=== PATIENT | male | born 1935 | race Caucasian/White ===

== ENCOUNTER 2017-03-15 16:45 | Inpatient (IN) ==
[2017-03-15] MEDS ORDERED: Acetaminophen 325 MG TABLET PO PRN (18:42)
[2017-03-15] MEDS ORDERED: Acetaminophen/Butalbital/CaffeineTABLET PO PRN (18:42)
[2017-03-15] MEDS: Potassium Chloride Elixir 20 MEQ/15 ML UDC PO SCH (20:40)
[2017-03-15] MEDS: traMADol 50 MG TABLET PO PRN (20:40)
[2017-03-15] MEDS: Furosemide 20 MG TABLET PO SCH (20:40)
[2017-03-16 05:52] LABS: Basophils % 0.2 %; Eosinophils % 0.1 %; Hematocrit 26.5 % (37.5-50.1); Hemoglobin 8.8 g/dL (12.9-16.9); Immature Granulocytes % 7.1 % (0-4); Lymphocytes # 0.7 K/mcL (0.6-4.6); Mean Corpuscular HGB Conc 33.2 g/dL (31.6-35.5); Mean Corpuscular Hemoglobin 35.2 pg (28.0-33.3); Mean Platelet Volume 12.6 fL (9.4-12.4); Monocytes % 8.4 %; Nucleated Red Blood Cells 0.4 /100 WBC (0); Platelet Count 122 K/mcL (140-400); Segmented Neutrophils % 78.2 %
[2017-03-16 05:53] LABS: INR 1.1; Neutrophils # 9.5 K/mcL (1.6-8.9)
[2017-03-16 05:56] LABS: Activated Partial Thrombo Time 31.1 Seconds (26.0-36.0)
[2017-03-16 06:07] LABS: BUN/Creatinine Ratio 39 (6-26); Blood Urea Nitrogen 50 mg/dL (8-26); Calcium 8.3 mg/dL (8.6-10.8); Carbon Dioxide 28 mEq/L (19-29); Chloride 108 mEq/L (98-109); Glucose 168 mg/dL (70-99); Osmolality,Calculated 319 (280-300); Potassium 3.7 mEq/L (3.5-4.5); Sodium 146 mEq/L (136-145); eGFR For African Americans > 60 (> 60); eGFR For Non-African Americans 54 (> 60)
[2017-03-16] MEDS: Potassium Chloride Elixir 20 MEQ/15 ML UDC PO SCH ×2 (09:24→21:10)
[2017-03-16] MEDS: Lisinopril 20 MG TABLET PO SCH (09:24)
[2017-03-16] MEDS: Aspirin 81 MG TAB.CHEW PO SCH (09:24)
[2017-03-16] MEDS: Vitamin B Complex/Vit C/Vit E 1 EACH TABLET PO SCH (09:24)
[2017-03-16] MEDS: amLODIPine 5 MG TABLET PO SCH (09:24)
[2017-03-16] MEDS: Metoprolol XL (24 HR) Succ 25 MG TAB.ER.24H PO SCH (09:24)
[2017-03-16] MEDS: Furosemide 20 MG TABLET PO SCH (09:25)
[2017-03-16] MEDS: traMADol 50 MG TABLET PO PRN (09:25)
--- NOTE | 2017-03-16 15:19 | Internal Med History&Physical ---
Date of Encounter: 03/16/17 Time of Encounter: 15:18 Assessment and Plan (1) Pulmonary edema Current visit: No Status: Acute By history Qualifiers: Chronicity: acute Qualified Code(s): J81.0 - Acute pulmonary edema (2) NSTEMI (non-ST elevated myocardial infarction) Current visit: No Status: Acute Noted. Patient had not catheter was noted to have RCA disease see added stented that was critical and other disease that was not is critical. Ejection fraction was preserved (3) CHF (congestive heart failure) Current visit: No Status: Chronic Qualifiers: Congestive heart failure type: unspecified congestive heart failure type Congestive heart failure chronicity: unspecified congestive heart failure chronicity Qualified Code(s): I50.9 - Heart failure, unspecified (4) Acute CHF (congestive heart failure) Current visit: No Status: Acute Her latex what he presented with swelling of the ankles he has some CHF Qualifiers: Congestive heart failure type: diastolic Qualified Code(s): I50.31 - Acute diastolic (congestive) heart failure Internal Medicine - H&P: HPI Chief complaint: Non-STEMI [place] coronary artery disease Admitted From: Hospital to Hospital Transfer Plans for Post Hospital Care: Home History of present illness: Mr. Santiago is a 81 year old male Past Med Surg Social Fam HX - Past Medical History Medical history: arthritis, coronary artery disease, dementia, hyperlipidemia, hypertension, migraine, myocardial infarction Psychiatric history: no psych history - Past Surgical History Surgical History: angioplasty/stent - Social History Smoking Status: Former smoker Smokeless Tobacco Status: Yes Alcohol use: occasionally Drug use: none - Family History Father Adopted: No Living Status: Hx Family Cardiac Disorders: No Hx Family Respiratory Disorders: No Hx Family Cancer: No Hx Family GI Disorders: No Hx Family Endocrine Disorder: No Hx Family Neuromuscular Disorders: No Hx Family Neurologic Disorders: No Hx Family HEENT Disorders: No Hx Family Autoimmune Disorders: No Internal Medicine - H&P: Meds Aspirin 81 mg PO DAILY 03/10/17 [History] Vitamin B Complex [B Complex] 1 tab PO DAILY 03/10/17 [History] Acetaminophen [Tylenol] 650 mg PO Q6HR PRN #0 tablet 03/15/17 [Rx] Acetaminophen/Butalbital/Caffe [Fioricet] 1 each PO Q6HR PRN #30 tablet [Rx] Amlodipine [Norvasc] 10 mg PO DAILY #30 tablet 03/15/17 [Rx] Clopidogrel [Plavix] 75 mg PO DAILY #30 tablet 03/15/17 [Rx] Docusate [Colace] 100 mg PO BID PRN #0 capsule 03/15/17 [Rx] Furosemide [Lasix] 20 mg PO BID #60 tablet 03/15/17 [Rx] Lisinopril [Zestril] 40 mg PO DAILY #30 tablet 03/15/17 [Rx] Metoprolol XL (24 HR) Succ [Toprol Xl] 25 mg PO DAILY tab.er.24h 03/15/17 [Rx] Potassium Chloride Elixir [Potassium Chloride] 20 meq PO BID #30 udc 03/15/17 [ Rx] Rosuvastatin [Crestor] 20 mg PO HS tablet 03/15/17 [Rx] Tramadol HCl [Ultram] 50 mg PO BID PRN #20 tab 03/15/17 [Rx] Allergies metoprolol [From Toprol XL] Adverse Reaction (Verified 03/10/17 08:46) See Comments PULSE DROPPED All Systems PM: A 10-system review of systems was performed and is negative for pertinent findings except as documented above in the HPI. - Constitutional Vitals: Temp Pulse Resp BP Pulse Ox 98.7 F 53 18 151/65 95 03/16/17 11:15 03/16/17 11:15 03/16/17 11:15 03/16/17 11:15 03/16/17 11:15 - Head Head exam: Present: atraumatic, normal inspection, normocephalic - Neck Neck exam general surgery: Present: supple, trachea midline. Absent: lymphadenopathy - Respiratory Respiratory exam: Present: CTAB. Absent: accessory muscle use, rales, rhonchi, wheezes - Cardiovascular Cardiovascular exam: Present: RRR, +S1, +S2. Absent: diastolic murmur, gallop, rubs, systolic murmur Additional comments: She has a grade 3 or 4/6 systolic ejection murmur - GI/Abdominal GI/Abdominal exam: Present: normal bowel sounds, soft, no peritoneal signs. Absent: distended, tenderness Internal Med - H&P Results - Labs CBC & Chem 7: 03/16/17 05:35 03/16/17 05:35 Labs: Short CBC 03/16/17 Range/Units 05:35 WBC 12.2 H (4.3-11.1) K/mcL Hgb 8.8 L (12.9-16.9) g/dL Hct 26.5 L (37.5-50.1) % Plt Count 122 L (140-400) K/mcL Neutrophils # 9.5 H (1.6-8.9) K/mcL BMP 03/16/17 05:35 Sodium 146 H Potassium 3.7 Chloride 108 Carbon Dioxide 28 BUN 50 H Creatinine 1.28 H Glucose 168 H Calcium 8.3 L Lab is stable (on that BUN now - VTE Documentation of Mechanical Device: Graduated compression elastic hosiery
[2017-03-16] MEDS: Furosemide 40 MG TABLET PO SCH (16:59)
[2017-03-16] MEDS: *HR* OxyCODONE/APAP 7.5/325 TABLET PO PRN ×2 (17:01→21:10)
[2017-03-17] MEDS: *HR* OxyCODONE/APAP 7.5/325 TABLET PO PRN (03:05)
[2017-03-17] MEDS: Ibuprofen 800 MG TABLET PO PRN (09:09)
[2017-03-17] MEDS: amLODIPine 5 MG TABLET PO SCH (09:09)
[2017-03-17] MEDS: Lisinopril 20 MG TABLET PO SCH (09:09)
[2017-03-17] MEDS: Aspirin 81 MG TAB.CHEW PO SCH (09:09)
[2017-03-17] MEDS: Potassium Chloride Elixir 20 MEQ/15 ML UDC PO SCH ×2 (09:09→20:43)
[2017-03-17] MEDS: Metoprolol XL (24 HR) Succ 25 MG TAB.ER.24H PO SCH (09:09)
[2017-03-17] MEDS: Vitamin B Complex/Vit C/Vit E 1 EACH TABLET PO SCH (09:09)
[2017-03-17] MEDS: Furosemide 40 MG TABLET PO SCH ×2 (09:09→16:34)
--- NOTE | 2017-03-17 13:45 | Internal Med Progress Note ---
Date of Encounter: 03/17/17 Time of Encounter: 13:44 - Assessment and plan (1) Pulmonary edema Current Visit: No Status: Acute Assessment and plan: I do not see any evidence of pulmonary edema at this point Qualifiers: Chronicity: acute Qualified Code(s): J81.0 - Acute pulmonary edema (2) NSTEMI (non-ST elevated myocardial infarction) Current Visit: No Status: Acute Assessment and plan: Patient seems to be stable vital signs (3) CHF (congestive heart failure) Current Visit: No Status: Chronic Qualifiers: Congestive heart failure type: unspecified congestive heart failure type Congestive heart failure chronicity: unspecified congestive heart failure chronicity Qualified Code(s): I50.9 - Heart failure, unspecified (4) Acute CHF (congestive heart failure) Current Visit: No Status: Acute Assessment and plan: No evidence no evidence of acute congestive heart failure Qualifiers: Congestive heart failure type: diastolic Qualified Code(s): I50.31 - Acute diastolic (congestive) heart failure - Time Spent With Patient less than 15 minutes - Constitutional Vitals: Temp Pulse Resp BP Pulse Ox 98.6 F 62 15 187/81 96 03/17/17 07:27 03/17/17 07:27 03/17/17 07:27 03/17/17 07:27 03/17/17 07:27 - Head Head exam: Present: atraumatic, normal inspection, normocephalic - Neck Neck exam general surgery: Present: supple, trachea midline. Absent: lymphadenopathy - Respiratory Respiratory exam: Present: CTAB. Absent: accessory muscle use, rales, rhonchi, wheezes - Cardiovascular Cardiovascular exam: Present: RRR, +S1, +S2. Absent: diastolic murmur, gallop, rubs, systolic murmur - GI/Abdominal GI/Abdominal exam: Present: normal bowel sounds, soft, no peritoneal signs. Absent: distended, tenderness Internal Medicine: Result - Labs CBC & Chem 7: 03/16/17 05:35 03/16/17 05:35 Labs: I will recheck the BUN and Chem-7 in the a.m. - ABG Interpretation ABG results: PT/INR, D-dimer PT 12.0 Seconds (9.4-12.1) 03/16/17 05:35 - VTE Documentation of Mechanical Device: Graduated compression elastic hosiery Consult Discharge Plan - Plan Referrals: Petey Oconnell DO [Primary Care Provider] -
[2017-03-17] MEDS ORDERED: *HR* LORazepam 0.5 MG TABLET PO PRN (15:36)
[2017-03-17] MEDS: Saline Nasal Spray 44 ML BOTTLE NS SCH (20:43)
[2017-03-18 06:50] LABS: Calcium 8.2 mg/dL (8.6-10.8); Potassium 2.7 mEq/L (3.5-4.5)
[2017-03-18] MEDS: amLODIPine 5 MG TABLET PO SCH (08:34)
[2017-03-18] MEDS: Aspirin 81 MG TAB.CHEW PO SCH (08:34)
[2017-03-18] MEDS: Furosemide 40 MG TABLET PO SCH ×2 (08:34→18:21)
[2017-03-18] MEDS: Lisinopril 20 MG TABLET PO SCH (08:34)
[2017-03-18] MEDS: Vitamin B Complex/Vit C/Vit E 1 EACH TABLET PO SCH (08:34)
[2017-03-18] MEDS: Metoprolol XL (24 HR) Succ 25 MG TAB.ER.24H PO SCH (08:34)
[2017-03-18] MEDS: Potassium Chloride Elixir 20 MEQ/15 ML UDC PO SCH ×2 (08:36→20:07)
[2017-03-18] MEDS: Ibuprofen 800 MG TABLET PO PRN (10:06)
[2017-03-18] MEDS: Saline Nasal Spray 44 ML BOTTLE NS SCH ×4 (10:06→20:07)
--- NOTE | 2017-03-18 13:19 | Internal Med Progress Note ---
Date of Encounter: 03/18/17 Time of Encounter: 13:17 - Assessment and plan (1) Pulmonary edema Current Visit: No Status: Acute Assessment and plan: No evidence of same Qualifiers: Chronicity: acute Qualified Code(s): J81.0 - Acute pulmonary edema (2) NSTEMI (non-ST elevated myocardial infarction) Current Visit: No Status: Acute Assessment and plan: Noted (3) CHF (congestive heart failure) Current Visit: No Status: Chronic Qualifiers: Congestive heart failure type: unspecified congestive heart failure type Congestive heart failure chronicity: unspecified congestive heart failure chronicity Qualified Code(s): I50.9 - Heart failure, unspecified (4) Acute CHF (congestive heart failure) Current Visit: No Status: Acute Assessment and plan: Again no acute CHF Qualifiers: Congestive heart failure type: diastolic Qualified Code(s): I50.31 - Acute diastolic (congestive) heart failure - Time Spent With Patient less than 15 minutes - Subjective Interval history: Patient himself has no problems. He does get anxious and wants to get up and move around probably due to his dementia. He told his family yesterday that he was home and called to see how he was doing and so there is confusion. 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 This is been ordered. A UA was done and it was negative and he is seeing a drafting clerk tomorrow. If they do not order Dopplers for carotid studies I will get these also. - Constitutional Vitals: Temp Pulse Resp BP Pulse Ox 98.3 F 61 16 176/66 94 03/18/17 07:00 03/18/17 07:00 03/18/17 07:00 03/18/17 07:00 03/18/17 07:00 - Head Head exam: Present: atraumatic, normal inspection, normocephalic - Neck Neck exam general surgery: Present: supple, trachea midline. Absent: lymphadenopathy - Respiratory Respiratory exam: Present: CTAB. Absent: accessory muscle use, rales, rhonchi, wheezes - Cardiovascular Cardiovascular exam: Present: RRR, +S1, +S2. Absent: diastolic murmur, gallop, rubs, systolic murmur - GI/Abdominal GI/Abdominal exam: Present: normal bowel sounds, soft, no peritoneal signs. Absent: distended, tenderness Internal Medicine: Result - Labs CBC & Chem 7: 03/16/17 05:35 03/18/17 05:00 Labs: BMP 03/18/17 05:00 Sodium 148 H Potassium 2.7 L D Chloride 104 Carbon Dioxide 30 H BUN 50 H Creatinine 1.53 H Glucose 169 H Calcium 8.2 L Potassium was low - ABG Interpretation ABG results: PT/INR, D-dimer PT 12.0 Seconds (9.4-12.1) 03/16/17 05:35 - VTE Documentation of Mechanical Device: Graduated compression elastic hosiery Consult Discharge Plan - Plan Referrals: Petey Oconnell DO [Primary Care Provider] -
[2017-03-18] MEDS: 0.9 % Sodium Chloride 1,000 ML IVC SCH (14:42)
[2017-03-18 17:39] LABS: Amphetamine Screen,Urine Negative ng/mL (Cutoff=1000); Barbiturate Screen,Urine Positive ng/mL (Cutoff=200); Benzodiazepines Screen,Urine Negative ng/mL (Cutoff=200); Cannabinoid Screen,Urine Negative ng/mL (Cutoff = 50); Cocaine Screen,Urine Negative ng/mL (Cutoff= 300); Opiate Screen,Urine Negative ng/mL (Cutoff=300); Phencyclidine Screen,Urine Negative ng/mL (Cutoff=25)
[2017-03-18] MEDS: *HR* LORazepam 0.5 MG TABLET PO PRN (18:22)
[2017-03-18] MEDS: *HR* OxyCODONE/APAP 7.5/325 TABLET PO PRN (20:08)
[2017-03-19] MEDS: *HR* LORazepam 0.5 MG TABLET PO PRN (00:16)
[2017-03-19] MEDS: *HR* OxyCODONE/APAP 7.5/325 TABLET PO PRN (00:17)
[2017-03-19] MEDS: 0.9 % Sodium Chloride 1,000 ML IVC SCH (04:52)
[2017-03-19 07:32] LABS: Calcium 8.1 mg/dL (8.6-10.8); Potassium 2.9 mEq/L (3.5-4.5)
[2017-03-19 07:33] VITALS: BP 150/75
[2017-03-19] MEDS: Potassium Chloride Elixir 20 MEQ/15 ML UDC PO SCH (08:28)
[2017-03-19] MEDS: Aspirin 81 MG TAB.CHEW PO SCH (08:28)
[2017-03-19] MEDS: Furosemide 40 MG TABLET PO SCH ×2 (08:29→18:36)
[2017-03-19] MEDS: Vitamin B Complex/Vit C/Vit E 1 EACH TABLET PO SCH (08:29)
[2017-03-19] MEDS: Metoprolol XL (24 HR) Succ 25 MG TAB.ER.24H PO SCH (08:29)
[2017-03-19] MEDS: Lisinopril 20 MG TABLET PO SCH (08:29)
[2017-03-19] MEDS: amLODIPine 5 MG TABLET PO SCH (08:29)
[2017-03-19] MEDS: Saline Nasal Spray 44 ML BOTTLE NS SCH ×3 (08:30→16:12)
[2017-03-19 08:51] LABS: Hematocrit 28.3 % (37.5-50.1); Hemoglobin 9.3 g/dL (12.9-16.9); Mean Corpuscular HGB Conc 32.9 g/dL (31.6-35.5); Mean Corpuscular Hemoglobin 34.8 pg (28.0-33.3); Mean Platelet Volume 13.6 fL (9.4-12.4); Nucleated Red Blood Cells 0.6 /100 WBC (0); Platelet Count 117 K/mcL (140-400); Red Blood Count 2.67 M/mcL (4.19-5.50); Red Cell Distribution Width 20.3 % (11.5-14.5)
[2017-03-19 09:23] LABS: Lymphocytes # 0.5 K/mcL (0.6-4.6); Monocytes # 0.2 K/mcL (0.0-1.3); Neutrophils # 10.6 K/mcL (1.6-8.9)
[2017-03-19] MEDS ORDERED: 0.9 % Sodium Chloride 500 ML IVC SCH (14:15)
--- NOTE | 2017-03-19 14:15 | Internal Med Progress Note ---
Date of Encounter: 03/19/17 Time of Encounter: 14:06 - Assessment and plan (1) Pulmonary edema Current Visit: No Status: Acute Qualifiers: Chronicity: acute Qualified Code(s): J81.0 - Acute pulmonary edema (2) NSTEMI (non-ST elevated myocardial infarction) Current Visit: No Status: Acute (3) CHF (congestive heart failure) Current Visit: No Status: Chronic Qualifiers: Congestive heart failure type: unspecified congestive heart failure type Congestive heart failure chronicity: unspecified congestive heart failure chronicity Qualified Code(s): I50.9 - Heart failure, unspecified (4) Acute CHF (congestive heart failure) Current Visit: No Status: Acute Qualifiers: Congestive heart failure type: diastolic Qualified Code(s): I50.31 - Acute diastolic (congestive) heart failure - Subjective Interval history: Patient gets a little agitated at nighttime. He has been refused transfer to the [facility] unit because that will feel he is severe enough. Lastly he is out today for cardiology consultation - Constitutional Vitals: Temp Pulse Resp BP Pulse Ox 98.1 F 72 18 150/75 95 03/19/17 07:32 03/19/17 07:32 03/19/17 07:32 03/19/17 07:32 03/19/17 07:32 Internal Medicine: Result - Labs CBC & Chem 7: 03/19/17 07:13 03/19/17 07:13 Labs: Short CBC 03/19/17 Range/Units 07:13 WBC 11.8 H (4.3-11.1) K/mcL Hgb 9.3 L (12.9-16.9) g/dL Hct 28.3 L (37.5-50.1) % Plt Count 117 L (140-400) K/mcL Neutrophils # 10.6 H (1.6-8.9) K/mcL BMP 03/19/17 07:13 Sodium 150 H Potassium 2.9 L Chloride 108 Carbon Dioxide 28 BUN 47 H Creatinine 1.47 H Glucose 179 H Calcium 8.1 L Number have to probably closely watch his chemistry. I am supplementing potassium and watching the sodium. - ABG Interpretation ABG results: PT/INR, D-dimer PT 12.0 Seconds (9.4-12.1) 03/16/17 05:35 - Impressions Impressions Chest X-Ray 03/18/17 14:16 IMPRESSION: Right middle lobe consolidation concerning for pneumonia. Interval improvement in small right effusion D/ / Addy Elliott MD / Addy Elliott MD Interpreting Provider: Addy Elliott MD - VTE Documentation of Mechanical Device: Graduated compression elastic hosiery Consult Discharge Plan - Plan Referrals: Petey Oconnell DO [Primary Care Provider] -
--- NOTE | 2017-03-19 17:42 | Electrocardiograph Report ---
[place] [id number] Test Date: 2017-03-18 Pat Name: Jose Elias Santiago Department: 2001 Room: 117 Gender: M Voice Teacher: Jovan : 1935 Requested By: Antwon Elise Order Number: [id number] Reading MD: Gary Cox Measurements Intervals [place] Rate: 72 P: 28 OK: 176 QRS: -24 QRSD: 166 T: 143 QT: 455 QTc: 479 Interpretive Statements SINUS RHYTHM WITH OCCASIONAL VENTRICULAR PREMATURE COMPLEXES POSSIBLE LEFT ATRIAL ENLARGEMENT LEFT BUNDLE BRANCH BLOCK Electronically Signed On 03-19-2017 17:41:00 EDT by Gary Cox
[2017-03-22 07:06] LABS: Arsenic 13.3 ug/L (0.0-13.0); Cadmium <1.0 ug/L (0.0-5.0); Mercury <3 ug/L (0-10)
--- NOTE | 2017-03-26 14:50 | Discharge Summary ---
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 So he is therefore discharged from [place]. Qualifiers: (2) NSTEMI (non-ST elevated myocardial infarction) Priority: Primary Status: Acute (3) CHF (congestive heart failure) Priority: Primary Status: Chronic Qualifiers: Congestive heart failure type: diastolic Congestive heart failure chronicity: unspecified congestive heart failure chronicity Qualified Code(s) : I50.30 - Unspecified diastolic (congestive) heart failure (4) Acute CHF (congestive heart failure) Priority: Primary Status: Acute Qualifiers: Congestive heart failure type: diastolic Qualified Code(s): I50.31 - Acute diastolic (congestive) heart failure - Discharge Medications Home Medications: Aspirin 81 mg PO DAILY 03/10/17 [History] Vitamin B Complex [B Complex] 1 tab PO DAILY 03/10/17 [History] Acetaminophen [Tylenol] 650 mg PO Q6HR PRN #0 tablet 03/15/17 [Rx] Acetaminophen/Butalbital/Caffe [Fioricet] 1 each PO Q6HR PRN #30 tablet [Rx] Clopidogrel [Plavix] 75 mg PO DAILY #30 tablet 03/15/17 [Rx] Docusate [Colace] 100 mg PO BID PRN #0 capsule 03/15/17 [Rx] Furosemide [Lasix] 20 mg PO BID #60 tablet 03/15/17 [Rx] Lisinopril [Zestril] 40 mg PO DAILY #30 tablet 03/15/17 [Rx] Metoprolol XL (24 HR) Succ [Toprol Xl] 25 mg PO DAILY tab.er.24h 03/15/17 [Rx] Potassium Chloride Elixir [Potassium Chloride] 20 meq PO BID #30 udc 03/15/17 [ Rx] amLODIPine [Norvasc] 10 mg PO DAILY #30 tablet 03/15/17 [Rx] Clopidogrel [Plavix] 75 mg PO DAILY tablet 03/26/17 [Rx] LORazepam [Ativan] 0.5 mg PO Q4H PRN #20 tablet 03/26/17 [Rx] Magnesium Oxide [Mag-Ox] 400 mg PO BID tablet 03/26/17 [Rx] Oxycodone HCl/Acetaminophen [Percocet 7.5-325 mg Tablet] 1 each PO Q6H PRN #20 tablet 03/26/17 [Rx] Tamsulosin [Flomax] 0.4 mg PO DAILY capsule 03/26/17 [Rx] carBAMazepine [CarBAMazepine] 100 mg PO BID 14 Days 03/26/17 [Rx] clonazePAM [Klonopin] 0.25 mg PO DAILY #20 tablet 03/26/17 [Rx] clonazePAM [Klonopin] 0.25 mg PO DAILY@2000 #20 tablet 03/26/17 [Rx] Allergies/Adverse Reactions: Allergies metoprolol [From Toprol XL] Adverse Reaction (Verified 03/19/17 16:20) See Comments PULSE DROPPED- AFTER HEART CATH, PULSE STAYED HIGH, PATIENT IS CURRENTLY TAKING MED WITH NO PROBLEMS Date of admission: 03/15/17 16:45 Primary care physician: Petey Oconnell Consults: 03/15/17 18:43 Consult to Occupational Therapy [CONS] Routine Comment: eval and treat Reason for Consult: NSTEMI Consult to Physical Therapy [CONS] Routine Comment: eval and treat Reason for Consult: NSTEMI Consult to Recreational Therapy [CONS] Routine Comment: Discharging clinician: Antwon Elise Anticipated date of discharge: 03/30/17 - Patient Status Disposition: Transfer Short-Term Hosp Condition: Fair Functional capacity at discharge: uses cane/walker Overall status at discharge: patient is not back to baseline - Discharge Instructions Follow Up With: Petey Oconnell DO [Primary Care Provider] - - Diet and Activity Activity: ambulate only with your walker Hospital course: Mr. Santiago is a 81 year old male - Time Spent with Patient Total time spent providing and/or coordinating discharge services: - Constitutional Vitals: Temp Pulse Resp BP Pulse Ox 98.1 F 72 18 150/75 95 03/19/17 07:32 03/19/17 07:32 03/19/17 07:32 03/19/17 07:32 03/19/17 07:32 - Head Head exam: Present: atraumatic, normocephalic - Neck Neck exam general surgery: Present: supple, trachea midline. Absent: lymphadenopathy - Respiratory Respiratory exam: Present: CTAB. Absent: accessory muscle use, rales, rhonchi, wheezes - Cardiovascular Cardiovascular exam: Present: RRR, +S1, +S2. Absent: diastolic murmur, gallop, rubs, systolic murmur - VTE Documentation of Mechanical Device: Graduated compression elastic hosiery
== END 2017-03-19 18:56 | disposition short-term general hospital (02) | DRG 281 ==
LOC: INPGRE 16:45
PROVIDERS: ADMIT Internal Medicine; ATTEND Internal Medicine